=== PATIENT | female | born 1960 | race Caucasian/White ===

== ENCOUNTER 2016-07-01 14:29 | Emergency (ER) | payer OTHER ==
[~2016-07-01] VITALS: Ht 157.5 cm; Wt 65.8 kg
[2016-07-01 14:50] VITALS: BP 135/83
--- NOTE | 2016-07-01 14:57 | Emergency Room Report ---
History of Present Illness General Chief Complaint: Skin Rash/Abscess Source: Patient Present Illness HPI The patient is a 55-year-old female presenting with left thumb pain which occurred 2 weeks prior after being injured by a sea urchin. The patient was seen in the ER at that time and states that several spines from the sea urchin were removed but the patient feels as if there are still some left in the thumb. The patient states that she was placed on doxycycline and has finished the course. The patient states pain is a 7/10 throbbing to the thumb and does not radiate. Pain worse with touch. The patient denies numbness or tingling. Allergies: Coded Allergies: LACTOSE (Verified Allergy, Unknown, 07/01/16) Uncoded Allergies: SULFA (Allergy, Unknown, 07/01/16) Patient History Past Medical History: see triage record Pertinent Family History: none Reviewed Nursing Documentation: PMH: Agreed, PSxH: Agreed Nursing Documentation-PMH Past Medical History: No Stated History Review of Systems All Other Systems: negative except mentioned in HPI Physical Exam Vital Signs Date Time Temp Pulse Resp B/P Pulse Ox O2 Delivery O2 Flow Rate FiO2 07/01/16 14:39 97.5 61 18 135/83 98 Room Air Sp02 EP Interpretation: reviewed, normal General Appearance: no apparent distress, alert, GCS 15, non-toxic Head: normocephalic, atraumatic Eyes: bilateral eye PERRL, bilateral eye normal inspection ENT: hearing grossly normal, normal pharynx, no angioedema, normal voice Musculoskeletal: back normal, gait/station normal, normal range of motion, swelling - L thumb distal to IPJ, tender - TTP over L thumb palmar surface Neurologic: alert, oriented x3, responsive, motor strength/tone normal, sensory intact, speech normal Psychiatric: judgement/insight normal, memory normal, mood/affect normal, no suicidal/homicidal ideation Reflexes: 3+ bicep (R), 3+ bicep (L), 3+ tricep (R), 3+ tricep (L), 3+ knee (R) , 3+ knee (L) Skin: normal color, no rash, warm/dry, well hydrated Lymphatic: no adenopathy Medical Decision Making PA Attestation Dr. Livingston is my supervising physician. Patient management was discussed with my supervising physician Diagnostic Impression: Primary Impression: Foreign body of thumb, left ER Course The patient is a 55-year-old female presenting with left thumb pain which occurred 2 weeks prior after being injured by a sea urchin. DDx: cellulitis, abscess, paronychia, felon, foreign body PE: Vitals WNL. NAD. L thumb: 1+ edema primarily to ventral surface. TTP. Full AROM. SILT. Xray: Soft tissue swelling of the thumb, with suggestion of faint soft tissue calcifications possibly representing foreign bodies The pt was advised this would not be suitable for removal in the ER and would have to obtain referral to see hand surgeon. Pt DC'ed home with prescription for ciprofloxacin and motrin. ER precautions given Other X-Ray Diagnostic Results Other X-Ray Diagnostic Results : Date: Jul 01, 2016 EP Interpretation: Yes Findings: no fractures, no dislocation, other - STS and multiple FB seen of thumb Number of Views: 3 PA Scribe Text I'm acting as scribe for my supervising physician. My supervising physician's interpretation of the L thumb xrays are there are no fractures or dislocation. There is STS and multiple FB seen in soft tissue of thumb Last Vital Signs Date Time Temp Pulse Resp B/P Pulse Ox O2 Delivery O2 Flow Rate FiO2 07/01/16 14:39 97.5 61 18 135/83 98 Room Air Status: improved Disposition: HOME, SELF-CARE Condition: Improved Scripts Ciprofloxacin Hcl* (CIPROFLOXACIN HCL*) 500 Mg Tablet 500 MG ORAL EVERY 12 HOURS, #14 TAB 0 Refills Prov: TERZIAN,BARI P.A. 07/01/16 Ibuprofen* (MOTRIN*) 600 Mg Tablet 600 MG ORAL Q8H Y for For Pain, #30 TAB 0 Refills Prov: TERZIAN,BARI P.A. 07/01/16 TERZIAN,BARI P.A. Jul 01, 2016 14:57
[2016-07-01] MEDS ORDERED: CIPROFLOXACIN500 M2 ORAL (15:34)
[2016-07-01] MEDS ORDERED: IBUPROFEN600 MG ORAL (15:34)
[2016-07-01 15:42] VITALS: BP 135/83
--- NOTE | 2016-07-01 16:30 | Diagnostic Imaging Report ---
Indications: Penetrating trauma by sea urchin, pain Technique: 3 views left hand. Findings: Comparison: None Brain focally obscured as base of fourth digit. Soft tissues of thumb mildly swollen with faint suggestion of a cluster of linear calcifications adjacent to the palmar aspect of the distal phalangeal base.. No fracture, dislocation, joint space widening , soft tissue gas, or other acute changes are identified. IMPRESSION: Soft tissue swelling of the thumb, with suggestion of faint soft tissue calcifications possibly representing foreign bodies No other evidence of acute injury, limited as described
== END 2016-07-01 15:43 | disposition home or self-care (01) ==
LOC: EMR 15:15
DX: S60.352A Superficial foreign body of left thumb, initial encounter (principal); X58.XXXA Exposure to other specified factors, initial encounter; Y92.89 Other specified places as the place of occurrence of the external cause; Z88.2 Allergy status to sulfonamides; Z88.8 Allergy status to other drugs, medicaments and biological substances
CPT/HCPCS: 99284